=== PATIENT | male | born 1995 | race Native Hawaiian/Other Pacific Islander ===

== ENCOUNTER 2016-08-23 15:09 | Emergency (ER) | payer OTHER ==
[2016-08-23] MEDS ORDERED: KETOROLAC 60 MG/2 ML VIAL IVP STA (16:06)
[2016-08-23] MEDS ORDERED: KETOROLAC 30 MG/ML VIAL ONE (16:16)
== END 2016-08-23 17:57 | disposition home or self-care (01) ==
DX: S46.912A Strain of unspecified muscle, fascia and tendon at shoulder and upper arm level, left arm, initial encounter (principal); X50.0XXA Overexertion from strenuous movement or load, initial encounter; Y93.02 Activity, running